=== PATIENT | female | born 1955 | race Caucasian/White ===

== ENCOUNTER → 2017-08-25 | Outpatient (CLI) | payer OTHER | LOC: LAB 13:41 | DX: Z80.52 Family history of malignant neoplasm of bladder (principal) ==

== ENCOUNTER → 2017-09-22 | Day surgery (SDC) | payer OTHER | LOC: MSO 07:18 | DX: Z12.11 Encounter for screening for malignant neoplasm of colon (principal) | CPT/HCPCS: 00810; J3010; J7120 ==

== ENCOUNTER 2019-06-28 14:14 | Emergency (ER) | payer OTHER ==
[~2019-06-28] VITALS: Ht 172.7 cm; Wt 61.4 kg
[2019-06-28 14:39] LABS: EOS # 0.4 (0.04-0.40); EOS % 6.2 % (1.0-5.0); HEMATOCRIT 39.3 % (37.0-47.0); HEMOGLOBIN 13.2 g/dL (12.5-16.0); LYMPH# 1.8 (1.50-4.00); MEAN CELL VOLUME 92 fl (78-100); MEAN CORPUSCULAR HEMOGLOBIN 31 pg (27-31); MEAN CORPUSCULAR HGB CONC 34 g/dL (33-37); MEAN PLATELET VOLUME 9.9 fl (7.4-10.4); MONO # 0.6 (0.20-0.80); NEU # 2.9 (1.40-6.50); PLATELET COUNT 185 K/mm3 (130-400); RED BLOOD COUNT 4.26 M/mm3 (4.10-5.30); RED CELL DISTRIBUTION WIDTH 13.7 % (11.5-14.5); WHITE BLOOD COUNT 5.6 K/mm3 (4.8-10.8)
[2019-06-28 14:48] LABS: ALBUMIN 4.3 g/dL (3.4-4.8); POTASSIUM 3.7 mmol/L (3.5-5.1)
[2019-06-28 14:50] LABS: CALCIUM 9.3 mg/dL (8.3-10.5)
[2019-06-28 14:51] LABS: TOTAL PROTEIN 7.4 g/dL (6.2-8.1)
[2019-06-28 14:53] LABS: TOTAL BILIRUBIN 0.4 mg/dL (0.2-1.2)
[2019-06-28 16:36] LABS: PH-URINE 6.5 (5.0 - 8.0); URINE APPEARANCE CLEAR; URINE BILIRUBIN NEGATIVE (NEGATIVE); URINE BLOOD NEGATIVE (NEGATIVE); URINE COLOR YELLOW; URINE GLUCOSE NEGATIVE (NEGATIVE); URINE KETONE NEGATIVE (NEGATIVE); URINE LEUKOCYTE ESTERASE NEGATIVE (NEGATIVE); URINE NITRATE NEGATIVE (NEGATIVE); URINE PROTEIN(semi-quant) NEGATIVE (NEGATIVE); URINE UROBILINOGEN NORMAL (NORMAL)
[2019-06-28 16:37] LABS: URINE MUCUS PRESENT (NOT PRESENT)
[2019-06-28] MEDS ORDERED: NORCO 325 MG-51 TA1 PO (18:01)
[2019-06-28] MEDS ORDERED: ZOFRAN4 M2 PO (18:01)
[2019-06-28 18:45] VITALS: BP 134/60
== END 2019-06-28 18:10 | disposition home or self-care (01) ==
LOC: ED 14:14
PROVIDERS: Nurse Practitioner Primary Care
DX: K52.9 Noninfective gastroenteritis and colitis, unspecified (principal); Z90.710 Acquired absence of both cervix and uterus
CPT/HCPCS: J1885; J2270; J2405; J7030; Q9967

== ENCOUNTER → 2019-07-26 | Outpatient (CLI) | payer OTHER ==
[2019-06-28 18:45] VITALS: BP 134/60
[~2019-07-26] MED LIST: NORCO 325 MG-51 TA1 PO; ZOFRAN4 M2 PO
== END ==
LOC: RAD 07:14
DX: K76.89 Other specified diseases of liver (principal); N28.1 Cyst of kidney, acquired

== ENCOUNTER → 2020-09-05 | Outpatient (CLI) | payer OTHER | LOC: LAB 11:29 | DX: R30.9 Painful micturition, unspecified (principal) ==

== ENCOUNTER → 2021-09-25 | Outpatient (CLI) | payer OTHER | LOC: RAD 14:09 | DX: M25.561 Pain in right knee (principal); M25.562 Pain in left knee ==

== ENCOUNTER 2022-01-15 09:13 | Emergency (ER) | payer MEDICARE, OTHER ==
[~2022-01-15] VITALS: Ht 172.7 cm; Wt 62.7 kg
[2022-01-15] MEDS ORDERED: MELOXICAM15 MG PO (09:37)
[2022-01-15 10:31] LABS: BASO # 0.02 K/mm3 (0.02-0.10); HEMATOCRIT 42.1 % (37.0-47.0); HEMOGLOBIN 14.5 g/dL (12.5-16.0); LYMPH# 0.76 K/mm3 (1.50-4.00); MEAN CELL VOLUME 92 fl (78-100); MEAN CORPUSCULAR HEMOGLOBIN 32 pg (27-31); MEAN CORPUSCULAR HGB CONC 34 g/dL (33-37); MEAN PLATELET VOLUME 10.3 fl (7.4-10.4); MONO # 0.41 K/mm3 (0.20-0.80); PLATELET COUNT 208 K/mm3 (130-400); RED BLOOD COUNT 4.58 M/mm3 (4.10-5.30); WHITE BLOOD COUNT 11.8 K/mm3 (4.8-10.8)
[2022-01-15 10:35] LABS: ALBUMIN 4.7 g/dL (3.4-4.8); POTASSIUM 4.2 mmol/L (3.5-5.1)
[2022-01-15 10:36] LABS: CALCIUM 10.2 mg/dL (8.3-10.5)
[2022-01-15 10:38] LABS: TOTAL PROTEIN 7.5 g/dL (6.2-8.1)
[2022-01-15 10:39] LABS: TOTAL BILIRUBIN 0.6 mg/dL (0.2-1.2)
[2022-01-15 11:15] LABS: URINE APPEARANCE HAZY; URINE BILIRUBIN NEGATIVE (NEGATIVE); URINE BLOOD 250 ery/uL (NEGATIVE); URINE COLOR DARK YELLOW; URINE GLUCOSE NEGATIVE (NEGATIVE); URINE KETONE 2+ (NEGATIVE); URINE NITRATE NEGATIVE (NEGATIVE); URINE PROTEIN(semi-quant) 2+ (NEGATIVE); URINE UROBILINOGEN NORMAL (NORMAL)
[2022-01-15 11:16] LABS: URINE LEUKOCYTE ESTERASE TRACE (NEGATIVE)
[2022-01-15] MEDS ORDERED: ZOFRAN ODT4 MG PO (11:32)
[2022-01-15 11:38] VITALS: BP 126/67
== END 2022-01-15 11:42 | disposition home or self-care (01) ==
LOC: ED 09:13
PROVIDERS: Physician Assistant
DX: K52.9 Noninfective gastroenteritis and colitis, unspecified (principal); R31.9 Hematuria, unspecified
CPT/HCPCS: J2405; J3010; J7030

== ENCOUNTER → 2023-08-13 | Outpatient (CLI) | payer MEDICARE, OTHER ==
[~2023-08-13] MED LIST changes: +MELOXICAM15 MG PO; +ZOFRAN ODT4 MG PO
== END ==
LOC: MAMMO 15:00 → RAD 15:45
DX: Z12.31 Encounter for screening mammogram for malignant neoplasm of breast (principal); N63.14 Unspecified lump in the right breast, lower inner quadrant

== ENCOUNTER → 2023-08-13 | Outpatient (CLI) | payer MEDICARE, OTHER | LOC: MAMMO 15:06 | DX: Z12.31 Encounter for screening mammogram for malignant neoplasm of breast (principal); M85.89 Other specified disorders of bone density and structure, multiple sites; Z78.0 Asymptomatic menopausal state ==

== ENCOUNTER → 2023-08-18 | Outpatient (CLI) | payer MEDICARE | LOC: RAD 07:15 | DX: N60.01 Solitary cyst of right breast (principal) ==

== ENCOUNTER → 2024-01-22 | Outpatient (CLI) | payer MEDICARE | LOC: LAB 07:40 | DX: N39.0 Urinary tract infection, site not specified (principal) ==

== ENCOUNTER → 2024-08-23 | Outpatient (CLI) | payer MEDICARE, OTHER | LOC: MAMMO 10:53 | DX: Z12.31 Encounter for screening mammogram for malignant neoplasm of breast (principal) ==